=== PATIENT | female | born 1940 | race Two or more races ===

== ENCOUNTER 2022-08-04 07:58 | Day surgery (SDC) | payer OTHER ==
[~2022-08-04] VITALS: Ht 154.9 cm; Wt 69.4 kg
[~2022-08-04 07:58] MED LIST: GLUMETZA500 MG PO; IRBESARTAN-HCT1 EAC1 PO; SYNTHROID100 MCG PO
== END 2022-08-04 22:10 | disposition home or self-care (01) ==
LOC: CIR.AMB 07:58
PROVIDERS: ATTEND Specialist
DX: N95.0 Postmenopausal bleeding (principal); I10 Essential (primary) hypertension; E03.9 Hypothyroidism, unspecified; Z20.822 Contact with and (suspected) exposure to COVID-19